=== PATIENT | male | born 1985 | race Caucasian/White ===

== ENCOUNTER 2022-06-08 08:23 | Observation (INO) ==
[2022-06-08] MEDS ORDERED: Ondansetron 4 MG/2 ML VIAL IVP ONE (08:46)
[2022-06-08] MEDS ORDERED: *HR* FentaNYL (PF) 100 MCG/2 ML VIAL IVP ONE (08:46)
[2022-06-08] MEDS ORDERED: 0.9 % Sodium Chloride 1,000 ML IVC ONE (08:46)
[2022-06-08] MEDS ORDERED: Ketorolac 30 MG/ML VIAL IVP ONE (08:46)
[2022-06-08] MEDS ORDERED: Ketorolac 30 MG/ML VIAL IVP PRN ×2 (09:05→14:25)
[2022-06-08] MEDS ORDERED: Ondansetron 4 MG/2 ML VIAL IVP PRN ×3 (09:05→14:25)
[2022-06-08] MEDS ORDERED: Naloxone 0.4 MG/ML INJ IVP PRN ×2 (09:05→14:25)
[2022-06-08] MEDS ORDERED: Melatonin 3 MG TABLET PO PRN ×2 (09:05→14:25)
[2022-06-08] MEDS ORDERED: Nicotine 14 MG PATCH.TD24 TD PRN ×2 (09:08→14:25)
[2022-06-08] MEDS ORDERED: Nicotine 2 MG GUM BC PRN ×2 (09:08→14:25)
[2022-06-08] MEDS ORDERED: 0.9 % Sodium Chloride 1,000 ML IVC SCH ×2 (09:15→14:25)
[2022-06-08 09:37] LABS: Potassium 4.5 mEq/L (3.5-5.1)
[2022-06-08] MEDS: *HR* FentaNYL (PF) 100 MCG/2 ML VIAL IVP PRN ×4 (13:48→14:08)
[2022-06-08] MEDS ORDERED: *HR* OxyCODONE/APAP 5/325 TABLET PO PRN (14:25)
[2022-06-08] MEDS ORDERED: Ondansetron ODT 4 MG TAB.RAPDIS SL PRN (14:25)
[2022-06-08 17:30] VITALS: BP 147/93; PULSE 80; TEMP 97.7; O2SAT 98
== END 2022-06-08 18:23 | disposition home or self-care (01) ==
LOC: EMEROOARM 08:23 → 3BNU 08:23
PROVIDERS: ADMIT Internal Medicine; ATTEND Internal Medicine